=== PATIENT | female | born 1960 | race Caucasian/White ===

== ENCOUNTER 2017-06-04 11:20 | Emergency (ER) | payer MEDICARE ==
[~2017-06-04] VITALS: Ht 157.5 cm; Wt 92.4 kg
[2017-06-04 11:23] VITALS: PULSE 78; RESP 16; TEMP 97.5; O2SAT 95
[2017-06-04] MEDS ORDERED: CLIN300C5 PO (12:00)
--- NOTE | 2017-06-04 12:06 | PD ---
HPI . Facial swelling Chief Complaint: Oral / Dental Pain or Problem Time Seen by Provider: 11:59 Travel History International Travel<30 days: No Contact w/Intl Traveler<30days: No Traveled to known affect area: No History of Present Illness HPI Patient presents with chief complaint of swelling of the right jaw. Onset was yesterday. She is also complaining with a sore throat. She does not feel that she has a bad tooth. She rates the pain 5/10 with no modifying factors. PFSH Past Medical History Anxiety: Yes Depression: Yes Diminished Hearing: No Tetanus Vaccination: Unknown Influenza Vaccination: No ?: Not Past Surgical History Abdominal Surgery: Yes (gastric bypass) Section: Yes (x2) Social History Alcohol Use: No Tobacco Use: No Substance Use: No Allergies-Medications (Allergen,Severity, Reaction): Coded Allergies: latex (Verified Allergy, Unknown, 06/04/17) Reported Meds & Prescriptions Reported Meds & Active Scripts Active Clindamycin (Clindamycin HCl) 300 Mg Cap 300 Mg PO TID Review of Systems Except as stated in HPI: all other systems reviewed are Neg General / Constitutional: No: Fever, Chills HENT: Positive: Sore Throat, Other (swollen jaw), No: Dental Difficulties Physical Exam Narrative GENERAL: Awake and alert and in no acute distress. SKIN: Warm and dry. No redness or warmth. HEAD: Normocephalic/atraumatic. EYES: Pupils are equal. Extraocular movements are intact. ENT: No tenderness to percussion of her teeth. She has induration of her right jaw. The area is well-defined. It is not submandibular. Her oropharynx has what appears to be postnasal drip. NECK: Normal range of motion. Distally RESPIRATORY: Nonlabored respirations. Distally MUSCULOSKELETAL: Atraumatic. NEUROLOGICAL: Nonfocal. PSYCHIATRIC: Appropriate mood and affect. Data Data Last Documented VS Vital Signs Date Time Temp Pulse Resp B/P (MAP) Pulse Ox O2 Delivery O2 Flow Rate FiO2 06/04/17 11:23 97.5 78 16 95 Orders Orders Ed Discharge Order (06/04/17 12:01) MDM Medical Decision Making Medical Screen Exam Complete: Yes Emergency Medical Condition: Yes Differential Diagnosis Differential diagnosis of facial swelling includes but is not limited to dental abscess, cellulitis, angioedema, facial trauma. Narrative Course This patient presents with atraumatic swelling of her right jaw. It looks and feels a dental abscess. But, she does not have any tenderness to percussion of her teeth. Nonetheless, she will be treated with clindamycin and instructed to follow-up with a dentist. Diagnosis Primary Impression: Dental abscess Patient Instructions: General Instructions, Dental Abscess (ED) Departure Forms: Tests/Procedures Additional Instructions: Follow-up with a dentist of choice Scripts Clindamycin (Clindamycin) 300 Mg Cap 300 MG PO TID for Infection, #21 CAP 0 Refills Prov: Gabriela Goodwin MD 06/04/17 Disposition: 01 DISCHARGE HOME Condition: Stable Gabriela Goodwin MD Jun 04, 2017 12:06
== END 2017-06-04 12:13 | disposition home or self-care (01) ==
LOC: PHEFT 11:20
DX: K04.7 Periapical abscess without sinus (principal); F32.9 Major depressive disorder, single episode, unspecified; F41.9 Anxiety disorder, unspecified
CPT/HCPCS: 99283